=== PATIENT | male | born 1960 | race Two or more races ===

== ENCOUNTER 2018-04-16 18:22 | Emergency (ER) | payer BC ==
[~2018-04-16] VITALS: Ht 170.2 cm; Wt 54.4 kg
[2018-04-16] MEDS: diphenhdrAMINE HCL 50 MG/1 ML VL IV ONE (18:38)
[2018-04-16] MEDS: LORazepam 2MG/ML-1ML VIAL IV ONE (18:38)
[2018-04-16] MEDS: HALOPERIDOL LACTATE 5 MG/ML INJ VIAL IM ONE (18:38)
[2018-04-16] MEDS: LORazepam 2MG/ML-1ML VIAL ONE (18:39)
[2018-04-16] MEDS: HALOPERIDOL LACTATE 5 MG/ML INJ VIAL ONE ×2 (18:39)
[2018-04-16] MEDS: SODIUM CHLORIDE 0.9% 3,000 ML IV ONE (18:54)
[2018-04-16 19:01] LABS: Basophils # (auto) 0.1 uL; Basophils % (auto) 0.5 % (0.0-2.0); Eosinophils # (auto) 0.1 uL; Eosinophils % (auto) 0.7 % (0.0-7.0); Hematocrit 47.4 % (41.0-53.0); Hemoglobin 16.2 g/dL (13.5-17.5); Lymphocytes # (auto) 2.4 uL; Lymphocytes % (auto) 11.8 % (10.0-50.0); Mean Corpuscular Hemoglobin 31.5 pg (28.0-32.0); Mean Corpuscular Hgb Conc. 34.2 g/dL (32.0-36.0); Mean Corpuscular Volume 92.1 fL (80.0-100.0); Monocytes # (auto) 2.2 uL; Monocytes % (auto) 10.5 % (0.0-12.0); Neutrophils # (auto) 15.7 uL; Neutrophils % (auto) 76.5 % (37.0-80.0); Nucleated Red Blood Cells % 0.1 %; Platelet Count (auto) 308 10^3/uL (140-450); Red Blood Cells 5.15 10^6/uL (4.5-5.90); Red Cell Distribution Width 13.2 % (11.8-14.3); White Blood Cell 20.5 10^3/uL (4.4-10.8)
[2018-04-16 19:17] LABS: Albumin 4.4 g/dL (3.4-5.0); BUN/Creatinine Ratio 9.5; Potassium 3.6 mmol/L (3.5-5.1)
[2018-04-16 19:19] LABS: Bilirubin, Total 1.2 mg/dL (0.2-1.0); Total Protein 8.2 g/dL (6.4-8.2)
[2018-04-16 20:52] VITALS: BP 108/47
[2018-04-16 20:55] LABS: Alcohol, Urine < 3.0 mg/dL (0-5); Amphetamine Screen, Urine NEGATIVE (NEGATIVE); Barbiturate Scree,Urine NEGATIVE (NEGATIVE); Benzodiazephine Screen, Urine NEGATIVE (NEGATIVE); Cannabinoid Screen, Urine POSITIVE (NEGATIVE); Cocaine Screen, Urine NEGATIVE (NEGATIVE); Opiate Scree,Urine NEGATIVE (NEGATIVE); Phencyclidine Screen, Urine NEGATIVE (NEGATIVE)
[2018-04-16 20:58] LABS: Urine Bacteria NONE SEEN /hpf (None Seen); Urine Blood 2+ /uL (Negative); Urine Hyaline Cast FEW /lpf (0 - 2); Urine Mucus FEW (None Seen); Urine Specific Gravity 1.012 (1.001-1.035); Urine WBC <1 /hpf (0 - 3)
== END 2018-04-16 22:43 ==
LOC: EDBD 18:29 → ER 18:29
DX: G92 Toxic encephalopathy (principal); F15.10 Other stimulant abuse, uncomplicated; I10 Essential (primary) hypertension; F12.10 Cannabis abuse, uncomplicated; Z02.89 Encounter for other administrative examinations
CPT/HCPCS: 36415; 80053; 80307; 81001; 85025; 96361; 96372; 96374; 96375; 99285; J1630; J2060; J7030